=== PATIENT | female | born 1965 | race Caucasian/White ===

== ENCOUNTER 2023-06-06 09:12 | Emergency (ER) | payer BC ==
[2023-06-06] MEDS: hydrOXYzine HCL 100 MG/2 ML SDV IM ONE (10:12)
[2023-06-06] MEDS: Ketorolac 30 MG/ML SDV IM ONE (10:13)
[2023-06-06] MEDS: Lidocaine 1% 5 ML VIAL INJECT ONE (10:16)
== END 2023-06-06 10:50 ==
LOC: JP.ED 09:12
DX: M62.830 Muscle spasm of back (principal); I10 Essential (primary) hypertension; Z79.899 Other long term (current) drug therapy; Z88.2 Allergy status to sulfonamides; Z91.013 Allergy to seafood
CPT/HCPCS: 20553; 96372; 99283; J1885; J3410